=== PATIENT | female | born 1965 | race Caucasian/White ===

== ENCOUNTER 2019-04-02 07:39 | Inpatient (IN) ==
[2019-03-27 12:47] LABS: Appearance,Urine CLEAR; Bilirubin,Urine NEG (NEG); Color,Urine YELLOW; Glucose,Urine (UA) NEGATIVE (NEG); Ketones,Urine NEG (NEG); Leukocyte Esterase,Urine NEG /uL (NEG); Nitrate,Urine NEG (NEG); Protein,Urine NEG (NEG); Specific Gravity,Urine 1.016 (1.000-1.035); Urine Blood NEG mg/dL (<0.03); Urobilinogen,Urine NEG (NEG)
[2019-03-27 14:53] LABS: Basophils # (Auto) 0 K/mcL (0.0-0.3); Basophils % (Auto) 0.3 % (0.0-2.0); Eosinophils # (Auto) 0.1 K/mcL (0.0-0.7); Eosinophils % (Auto) 1.8 % (0.0-7.0); Hematocrit 40.4 % (36.0-48.0); Hemoglobin 13.4 g/dL (12.0-15.0); Lymphocytes # (Auto) 2.2 K/mcL (1.5-4.8); Lymphocytes % (Auto) 33.8 % (15.5-49.0); Mean Cell Volume 91.9 fL (80.0-100.0); Mean Corpuscular HGB Conc 33.2 g/dL (31.0-36.0); Mean Platelet Volume 8.7 fL (7.4-10.4); Monocytes # (Auto) 0.3 K/mcL (0.1-0.9); Monocytes % (Auto) 5.1 % (1.0-12.0); Platelet Count 276 K/mcL (140-440); Red Cell Distribution Width 13.6 % (11.5-14.5); WBC 6.4 K/mcL (4.5-11.0)
[2019-03-27 15:01] LABS: Blood Urea Nitrogen 12 mg/dl (6-20); Calcium 9.3 mg/dl (8.6-10.4); Carbon Dioxide 25 mmol/L (22-30); Chloride 102 mmol/L (96-108); Glomerular Filtration Rate 100; Glucose 79 mg/dL (70-105)
[2019-03-27 15:22] LABS: Estimated Average Glucose(eAG) 123 mg/dL; Hemoglobin A1C 5.9 % HGB (4.0-6.0)
[~2019-04-02 07:39] MED LIST: 0.9 % SODIUM CHLORIDE 9 ML, KETOROLAC 30 MG, ROPIVACAINE HCL/PF 49.5 ML, EPINEPHrine 0.... IJ SCH; ACETAMINOPHEN 500 MG TABLET PO SCH; CELECOXIB 200 MG CAPSULE PO SCH; PREGABALIN 75 MG CAPSULE PO SCH; SCOPOLAMINE 1 PATCH PATCH TOPICAL ONE; ceFAZolin 2 GM in DEXTROSE 5% IN WATER 50 ML IV SCH
[2019-04-02] MEDS ORDERED: IPRATROPIUM/ALBUTEROL 3 ML AMPUL.NEB NEB PRN ×3 (08:00→13:57)
[2019-04-02] MEDS ORDERED: ROPIVACAINE HCL/PF 20 ML VIAL IJ ONE (11:33)
[2019-04-02] MEDS ORDERED: KETAMINE 100 MG/ML ML IV ONE (11:35)
[2019-04-02] MEDS ORDERED: FAMOTIDINE/PF 20 MG/2 ML VIAL IV ONE (11:35)
[2019-04-02] MEDS ORDERED: LIDOCAINE HCL/PF 100 MG/5 ML SYRINGE IV ONE (11:35)
[2019-04-02] MEDS ORDERED: MIDAZOLAM 2 MG/2 ML VIAL IV ONE (11:35)
[2019-04-02] MEDS ORDERED: TRANEXAMIC ACID 1,000 MG/10 ML VIAL IV ONE (11:35)
[2019-04-02] MEDS ORDERED: PROPOFOL 200 MG/20 ML VIAL IV ONE (11:35)
[2019-04-02] MEDS ORDERED: DEXAMETHASONE 10 MG/ML VIAL IV ONE (11:35)
[2019-04-02] MEDS ORDERED: ONDANSETRON 4 MG/2 ML VIAL IV ONE (11:35)
[2019-04-02] MEDS ORDERED: diphenhydrAMINE 50 MG/ML VIAL IV ONE (11:35)
[2019-04-02] MEDS ORDERED: GLYCOPYRROLATE 0.2 MG/ML VIAL IV ONE (11:35)
[2019-04-02] MEDS ORDERED: PHENYLEPHRINE 10 MG/ML VIAL IV ONE (11:35)
[2019-04-02] MEDS ORDERED: GENTAMICIN SULFATE 800 MG/20 ML VIAL IR ONE (12:07)
[2019-04-02] MEDS ORDERED: NALOXONE HCL 0.4 MG/ML VIAL IV PRN (12:41)
[2019-04-02] MEDS ORDERED: LACTATED RINGERS 250 ML IV PRN (12:41)
[2019-04-02] MEDS ORDERED: fentaNYL 100 MCG/2 ML VIAL IV PRN (12:41)
[2019-04-02] MEDS ORDERED: HYDROmorphone 2 MG/ML VIAL IV PRN ×3 (12:41→13:22)
[2019-04-02] MEDS ORDERED: FLUMAZENIL 0.1 MG/ML ML IV PRN (12:41)
[2019-04-02] MEDS ORDERED: BENZOCAINE/MENTHOL 1 LOZENGE PO PRN ×2 (12:41→13:16)
[2019-04-02] MEDS ORDERED: METHOCARBAMOL 1,000 MG/10 ML VIAL IV PRN (12:41)
[2019-04-02] MEDS ORDERED: ONDANSETRON 4 MG/2 ML VIAL IV PRN ×2 (12:41→13:16)
[2019-04-02] MEDS ORDERED: LACTATED RINGERS 1,000 ML IV SCH (12:45)
[2019-04-02] MEDS ORDERED: FLEETS ADULT ENEMA PR PRN (13:16)
[2019-04-02] MEDS ORDERED: BISACODYL 10 MG SUPP.RECT PR PRN (13:16)
[2019-04-02] MEDS ORDERED: ACETAMINOPHEN 325 MG TABLET PO PRN (13:16)
[2019-04-02] MEDS ORDERED: POLYETHYLENE GLYCOL 3350 17 GM PACKET PO PRN (13:16)
[2019-04-02] MEDS ORDERED: MAGNESIUM HYDROXIDE 30 ML ORAL.SUSP PO PRN (13:16)
[2019-04-02] MEDS ORDERED: TRANEXAMIC ACID 1,000 MG/10 ML VIAL IV SCH (13:16)
[2019-04-02] MEDS ORDERED: OLOPATADINE 0.1% OPHTH DROPS 5ML BOTTLE OD PRN (13:21)
[2019-04-02] MEDS ORDERED: MECLIZINE 25 MG TABLET PO PRN (13:21)
[2019-04-02] MEDS ORDERED: diphenhydrAMINE 25 MG CAPSULE PO PRN (13:21)
[2019-04-02] MEDS ORDERED: ALBUTEROL SULFATE 1 PUFF INHALER INH PRN (13:21)
[2019-04-02] MEDS ORDERED: NON FORMULARY MEDICATION 1 DOSE MISCELL (Epinephrine [Epipen 2-Pak] 0.3 MG) IJ PRN (13:21)
[2019-04-02] MEDS ORDERED: METHOCARBAMOL 500 MG TABLET PO PRN (13:21)
--- NOTE | 2019-04-02 13:26 | Brief Operative Note ---
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
[2019-04-02] MEDS ORDERED: CALCIUM CARBONATE 500 MG TAB.CHEW CHEWED PRN (13:28)
[2019-04-02] MEDS ORDERED: EPINEPHrine 1 MG/ML AMPUL IJ PRN ×2 (13:35→13:45)
[2019-04-02] MEDS ORDERED: MEPERIDINE 25 MG/ML SYRINGE IV PRN (13:57)
--- NOTE | 2019-04-02 14:01 | Operative Note ---
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 PROCEDURE: Right total knee arthroplasty revision from a partial knee to a total knee with removal of implant. SURGEON: Beau Wray MD DOCK GRADER: Renny Aguilar PA-C. This provider's expertise and technical skill were required throughout the case. The ATUL assisted with preoperative coordination, intraoperative retraction, wound closure, dressing and splint application, as well as postoperative documentation and care coordination. ANESTHESIA: General LMA anesthesia. COMPLICATIONS: None. TOTAL TOURNIQUET TIME: 55 minutes. DESCRIPTION OF PROCEDURE: The patient was brought to the operating room and put to sleep with general LMA anesthesia. Once asleep, the patient had the right leg sterilely prepped and draped in the usual sterile fashion. Timeout was performed. Once confirmed as the operative site, we proceeded with the case. Tranexamic acid and preoperative antibiotics were given. We then made a midline incision, midvastus approach was performed. We were able to identify the implant and this was removed using osteotomes. Once the implant was removed from the medial compartment-this was a partial knee that was well secured. There was no loosening of the implant and it seemed to be fitted well. ACL and PCL were intact. The lateral compartment showed delamination of the articular cartilage and softening of the bone underneath. The patellofemoral joint still appeared to be in good condition. After investigating, this we removed the implant medially. We were able to then bring in the robot, registered 30 points on the femur and the tibia, registered the center of hip rotation, registered intraarticular pins, and registered the robot. We then made our bony cuts on the femur. Once done, we were able to then remove osteophytes and remove the remnants of the lateral meniscus. All osteophytes were removed. We were able to then trial the implants, a size 2 tibial baseplate and size 3 femur and all the components fit very well. A 10 mm poly was the most appropriate. We were able to then prepare the patella measuring a total thickness of 24 mm and this was cut to 14 mm and then we placed an oval patella. This tracked very nicely and a small chamfer laterally. We then cemented into place the above-mentioned sizes. A 10 mm dished poly with an extra stem was placed. This gave good stability. Once done, we then were able to remove any excess debris and resurfaced the patella with an oval patella. We kept the knee at 45 degrees until the cement was dry. We removed any excess cement as well and we irrigated. We injected the soft tissues with the post-inject formula and then deflated the tourniquet at 55 minutes. Once this was done, we irrigated thoroughly and then closed the mid vastus approach with #1 Stratafix x2 sutures. Skin was closed with Stratafix and adhesive closure. Portals were closed with 4-0 nylon for the arrays. The patient tolerated this well. All pins were accounted for. RBH:anila Job ID: [id number] Doc ID: [id number] Beau Wray MD
[2019-04-02] MEDS: LACTATED RINGERS 1,000 ML IV SCH ×2 (14:47→17:37)
[2019-04-02] MEDS: 0.9 % SODIUM CHLORIDE 10 ML SYRINGE IV SCH (14:47)
--- NOTE | 2019-04-02 15:09 | XRay Report ---
CLINICAL INFORMATION: Post-Op Total Knee COMPARISON: None. FINDINGS: Total knee prostheses is anatomically aligned. No osseous abnormality. Periarticular gas and soft tissue swelling seen at the expected IMPRESSION: Negative Interpreted and Authenticated by: Jimmy Langley 04/02/19
[2019-04-02] MEDS: KETOROLAC 15 MG/ML VIAL IV SCH ×2 (17:37→23:19)
[2019-04-02] MEDS: ceFAZolin 1 GM VIAL IV SCH (20:16)
[2019-04-02] MEDS: DOCUSATE SODIUM 100 MG CAPSULE PO SCH (20:16)
[2019-04-02] MEDS: ASPIRIN 325 MG ENTERIC COATED TABLET PO SCH (20:16)
[2019-04-02] MEDS: Fluticasone/Salmeterol [Advair Hfa 230-21 Mcg Inhaler] INH SCH (20:17)
[2019-04-02] MEDS ORDERED: TEMAZEPAM 15 MG CAPSULE PO PRN (21:00)
[2019-04-02] MEDS ORDERED: SENNOSIDES 1 TABLET PO SCH (21:00)
[2019-04-03] MEDS: 0.9 % SODIUM CHLORIDE 10 ML SYRINGE IV SCH ×3 (00:04→13:37)
[2019-04-03] MEDS: HYDROmorphone 2 MG TABLET PO PRN ×5 (00:12→14:17)
[2019-04-03] MEDS: ceFAZolin 1 GM VIAL IV SCH (04:23)
[2019-04-03] MEDS: LACTATED RINGERS 1,000 ML IV SCH ×2 (04:32→08:09)
[2019-04-03] MEDS: KETOROLAC 15 MG/ML VIAL IV SCH ×2 (06:03→11:46)
--- NOTE | 2019-04-03 07:43 | Orthopedic Progress Note ---
Subjective Patient information: Note initiated : 04/03/19 at 7:42 am Service Date, if different from initiated Date: [] Patient: Nati Victoria 53 y/o F admitted on 04/02/19 for Right Knee Partial Converting to Total Knee. Chief Complaint: [Pt is stable this morning on post operative day 1 without any significant concerns or complaints. Patients vital signs have remained stable. Patients dressing is dry and is grossly intact from a tamar rovascular and motor standpoint. Patients 10 point ROS is otherwise negative. ] Objective Vital signs: Vital Signs Temp Pulse Resp BP Pulse Ox 04/03/19 03:54 98.3 F 79 20 115/66 94 04/02/19 23:13 97.4 F 78 16 115/69 95 04/02/19 19:52 97.4 F 86 16 126/75 94 04/02/19 16:10 84 18 118/66 95 04/02/19 15:40 75 123/69 94 04/02/19 15:25 73 121/69 94 04/02/19 15:10 70 121/71 93 04/02/19 14:55 85 20 130/77 94 04/02/19 14:40 80 18 132/75 90 04/02/19 14:35 98.0 F 75 14 129/73 94 04/02/19 14:25 98.0 F 77 14 139/75 94 04/02/19 14:10 97.9 F 82 14 147/88 94 04/02/19 13:55 97.7 F 93 H 18 145/92 97 04/02/19 13:50 94 H 19 157/84 96 04/02/19 13:45 89 15 132/73 99 04/02/19 13:40 98.5 F 87 22 129/64 99 Intake and Output 04/02/19 04/03/19 04/03/19 21:59 05:59 13:59 Intake Total 1340 1861 Output Total 3100 1700 300 Balance -1760 161 -300 Intake: IV 1000 Lactated Ringers 1,000 ml @ 100 1000 mls/hr IV .Q10H [facility] Rx#: [id number] Oral 1040 861 IV - Manual Only 300 Output: Urine Catheter Amount 400 Void Amount 2700 1700 300 Other: Meal snack snack Percent of Meal Consumed 100% 100% Feeding Ability Independent Urine Appearance Clear Clear Urine Color Pale Bright Yellow Urine Odor Normal # Voids 1 Weight 221 lb Intake & Output: Intake & Output 04/02/19 04/03/19 04/03/19 21:59 05:59 13:59 Intake Total 1340 1861 Output Total 3100 1700 300 Balance -1760 161 -300 Weight 221 lb Intake: IV 1000 Lactated Ringers 1,000 ml @ 100 1000 mls/hr IV .Q10H [facility] Rx#: [id number] Oral 1040 861 IV - Manual Only 300 Output: Urine Catheter Amount 400 Void Amount 2700 1700 300 Other: Meal snack snack Percent of Meal Consumed 100% 100% Feeding Ability Independent Urine Appearance Clear Clear Urine Color Pale Bright Yellow Urine Odor Normal # Voids 1 Incision: Yes healing Incision clean and dry: Yes Dressing: Yes clean Weight bearing status: full Neurological exam IM: Yes motor sensory intact, Yes neurovascular intact Extremities exam IM: Yes Foot pink and warm, Yes neurovascular intact - Labs CBC & BMP: 04/03/19 04:45 03/27/19 10:19 Labs: 04/03/19 03/27/19 04:45 10:19 Hgb 13.4 Hct 34.9 L 40.4 Assessment and Plan (1) Hx of total knee arthroplasty The patient has been educated regarding dressing care, Physical Therapy recommendations, home exercises, restrictions, and follow up appointments. The patient has had all necessary DME prescribed. The patient has remained relatively stable during their hospital course. Leave Dermabond patch intact until followup Status: Acute
--- NOTE | 2019-04-03 07:45 | Discharge Summary ---
Ortho Discharge - TKA - Patient Instructions Diet: Regular Diet Activity: activity as tolerated, weight bearing as tolerated Total Knee Protocol: For Total Knee: Start ROM REBEKA with stationary bike or rocking chair. Work on gaining full extension of knee. Posterior dislocation precautions provided. Hip abductor strengthening and gait training instructions provided. Apply Cryocuff as instructed. Dressing Care: May shower in 2 days - Problem Maintenance (1) Hx of total knee arthroplasty Status: Acute - Follow Up Plan Follow Up Appointments: Renny Aguilar PA-C [Physician Armature Tester] - 04/17/19 1:40 pm Disposition: Home, Self-Care Prognosis: Good Rehab Potential: Good I certify that the patient requires SNF services: No Overall status at discharge: patient is progressing back to baseline - Orders For Discharge Prescriptions: Docusate Sodium [Colace] 100 mg PO BID #60 cap Transmission Status: Pending to [facility] HYDROmorphone [Dilaudid] 2 - 4 mg PO Q4-6HP PRN #75 tab PRN Reason: Pain Prescription Printed Aspirin [Ecotrin] 325 mg PO BID #60 tab.ec Transmission Status: Pending to [facility]
[2019-04-03] MEDS: Fluticasone/Salmeterol [Advair Hfa 230-21 Mcg Inhaler] INH SCH (08:06)
[2019-04-03] MEDS: DOCUSATE SODIUM 100 MG CAPSULE PO SCH (08:06)
[2019-04-03] MEDS: ASPIRIN 325 MG ENTERIC COATED TABLET PO SCH (08:06)
[2019-04-03] MEDS ORDERED: VITAMIN D3 1,000 UNIT TABLET PO SCH (09:00)
[2019-04-03] MEDS ORDERED: THIAMINE 100 MG TABLET PO SCH (09:00)
[2019-04-03] MEDS ORDERED: FEXOFENADINE 180 MG TABLET PO SCH (09:00)
[2019-04-03] MEDS ORDERED: BIOTIN 2000 MCG PO SCH (09:00)
[2019-04-03] MEDS ORDERED: MAGNESIUM OXIDE 400 MG TABLET PO SCH (09:00)
[2019-04-03] MEDS ORDERED: VITAMIN B COMPLEX 1 CAPSULE PO SCH (09:00)
[2019-04-03] MEDS ORDERED: FISH OIL 1,000 MG CAPSULE PO SCH (09:00)
== END 2019-04-03 14:30 | disposition home or self-care (01) | DRG 468 ==
LOC: MEDSUR 07:39
PROVIDERS: ADMIT Orthopaedic Surgery; ATTEND Orthopaedic Surgery